=== PATIENT | male | born 1950 | race Hispanic/Latino ===

== ENCOUNTER → 2018-12-19 | Outpatient (REF) | payer MEDICARE, MEDICAID ==
[~2018-12-19] MED LIST: AMLODIPINE BESYL5 MG PO; ASPIRIN CHEWABL81 MG PO; ATORVASTATIN CA40 MG PO; GLIPIZIDE ER5 M1 PO; LEVEMIR1000 UNITS SC; LISINOPRIL20 MG PO; METFORMIN850 MG PO; NOVOLOG100 IU/1 M SC; ULTRAM50 M1 PO
[2018-12-19 08:31] LABS: HEMATOCRIT 38.1 % (39.0-50.0); HEMOGLOBIN 12.2 g/dl (14.0-18.0); MEAN CELL VOLUME 99.5 fL CALC (80.0-100.0); MEAN CORPUSCULAR HGB 31.9 pG CALC (26.0-32.0); RED BLOOD COUNT 3.83 mill/uL (4.70-6.10); RED CELL DISTRI WIDTH 12.8 % (11.5-15.5)
[2018-12-19 08:38] LABS: ALBUMIN 4.2 g/dL (3.2-5.0); ALKALINE PHOSPHATASE 119 u/l (38-126); ANION GAP 17 (6-22 (CALC)); BILIRUBIN, TOTAL 0.6 mg/dL (0.0-1.4); BUN 14 mg/dL (8-23); BUN/CREATININE RATIO 19 (12-20 (CALC)); CARBON DIOXIDE 28 mmol/l (22-30); CHLORIDE 104 mmol/l (95-108); CREATININE 0.7 mg/dL (0.7-1.3); GFR > 60 ML/MIN (>=60 (CALC)); GFR FOR AFR.AMER. > 60 ML/MIN (>=60 (CALC)); POTASSIUM 4.7 mmol/l (3.5-5.1); SGOT/AST 21 u/l (19-48); SODIUM 144 mmol/l (137-146); TOTAL PROTEIN 7.1 g/dL (6.3-8.2)
== END | disposition home or self-care (01) ==
LOC: LAB 07:38
PROVIDERS: ATTEND Internal Medicine
DX: E11.9 Type 2 diabetes mellitus without complications (principal); E78.2 Mixed hyperlipidemia; I63.9 Cerebral infarction, unspecified; I65.29 Occlusion and stenosis of unspecified carotid artery

== ENCOUNTER 2022-11-25 11:51 | Emergency (ER) | payer OTHER, MEDICARE, MEDICAID ==
[2022-11-25] VITALS (10 sets, daily range): BP systolic 154–193; BP diastolic 41–65
[~2022-11-25] VITALS: Ht 165.1 cm; Wt 86.2 kg
[2022-11-25] MEDS ORDERED: CLOPIDOGREL75 MG PO (12:17)
[2022-11-25 12:44] LABS: BASO% 0.2 % (0-3); EOS% 2.2 % (0-8); IMMATURE GRANULOCYTES 0.2 % (0.0-5.0); LYMPH% 27.8 % (15-41); MEAN CELL VOLUME 98.6 fL CALC (80.0-100.0); MEAN CORPUSCULAR HGB 31.8 pG CALC (26.0-32.0); MEAN CORPUSCULAR HGB CONC 32.3 g/dL CAL (32.0-36.0); MONO% 6.5 % (2-13); NEUT# 3.8 thou/uL (1.82-7.42); NEUT% 63.1 % (42-76); RED BLOOD COUNT 3.55 mill/uL (4.70-6.10); RED CELL DISTRI WIDTH 12.3 % (11.5-15.5)
[2022-11-25 12:48] LABS: HEMOGLOBIN 11.3 g/dl (14.0-18.0)
[2022-11-25 13:00] LABS: ALBUMIN 4.4 g/dL (3.2-5.0); ALKALINE PHOSPHATASE 99 u/l (38-126); ANION GAP 15 (6-22 (CALC)); BUN 31 mg/dL (8-23); BUN/CREATININE RATIO 23 (12-20 (CALC)); CARBON DIOXIDE 19 mmol/l (22-30); CHLORIDE 109 mmol/l (95-108); CREATININE 1.4 mg/dL (0.7-1.3); GFR FOR AFR.AMER. 60 ML/MIN (>=60 (CALC)); GFR OTHER RACES 50 ML/MIN (>=60 (CALC)); POTASSIUM 4.7 mmol/l (3.5-5.1); SGOT/AST 28 u/l (19-48); SODIUM 138 mmol/l (137-146); TOTAL PROTEIN 7.8 g/dL (6.3-8.2)
[2022-11-25 13:22] LABS: BILIRUBIN, TOTAL 0.6 mg/dL (0.2-1.3)
[2022-11-25 14:55] LABS: URINE BILIRUBIN - DIPSTICK NEGATIVE (NEGATIVE); URINE BLOOD DIPSTICK TRACE-INTACT (NEGATIVE); URINE COLOR YELLOW; URINE GLUCOSE - DIPSTICK >=1000 mg/dL (NEGATIVE); URINE KETONE NEGATIVE (NEGATIVE); URINE LEUK ESTERASE NEGATIVE (NEGATIVE); URINE PROTEIN - DIPSTICK NEGATIVE (NEG-TRACE); URINE UROBILINOGEN - DIPSTICK 0.2 E.U./dL (0.2)
[2022-11-25 14:57] LABS: URINE NITRITE - DIPSTICK NEGATIVE (Negative)
[2022-11-25] MEDS ORDERED: NAPROXEN250 MG PO (15:19)
[2022-11-25] MEDS ORDERED: METHOCARBAMOL500 MG PO (15:19)
== END 2022-11-25 16:10 | disposition home or self-care (01) | DRG 914 ==
LOC: ED 11:51
PROVIDERS: Nurse Practitioner
DX: T14.8XXA Other injury of unspecified body region, initial encounter (principal); V43.62XA Car passenger injured in collision with other type car in traffic accident, initial encounter; E11.9 Type 2 diabetes mellitus without complications; Z79.84 Long term (current) use of oral hypoglycemic drugs

== ENCOUNTER 2023-05-08 07:31 | Emergency (ER) | payer MEDICARE, MEDICAID ==
[~2023-05-08] VITALS: Ht 165.1 cm; Wt 73.8 kg
[~2023-05-08 07:31] MED LIST changes: +CLOPIDOGREL75 MG PO; +METHOCARBAMOL500 MG PO; +NAPROXEN250 MG PO
[2023-05-08 07:41] VITALS: BP 154/27
[2023-05-08 07:46] VITALS: BP 164/43
[2023-05-08] MEDS ORDERED: NAPROXEN500 MG PO (07:54)
[2023-05-08] MEDS ORDERED: VOLTAREN1%GEL TOP (07:54)
[2023-05-08 08:00] VITALS: BP 164/43
== END 2023-05-08 08:00 | disposition home or self-care (01) ==
LOC: ED 07:31
DX: M54.2 Cervicalgia (principal); I10 Essential (primary) hypertension; E11.9 Type 2 diabetes mellitus without complications; Z79.84 Long term (current) use of oral hypoglycemic drugs